=== PATIENT | female | born 1940 | race Hispanic/Latino ===

== ENCOUNTER 2016-10-18 18:11 | Emergency (ER) | payer MEDICARE, OTHER ==
[~2016-10-18] VITALS: Ht 152.4 cm; Wt 57.7 kg
[~2016-10-18 18:11] MED LIST: ADLT ASA LOW81 MG PO; ALLEGRA180 MG PO; ALPH-E400 UNIT OR; AMBIEN5 MG PO; ASPIRIN CHEWABL81 MG PO; ASTEPRO0.15 %; CIPROFLOXACN500 MG PO; CLARITIN10 MG PO; DELTASONE20 MG PO; DEXILANT60 MG PO; EQL STOOL SOFT100 MG PO; FISH OIL300 MG PO; FLAGYL ER750 MG PO; FLORASTOR250 M1 PO; GNP MELATONIN3 MG PO; K-TAB20 MEQ PO; LIPITOR10 MG PO; METAMUCIL0.52 G1 PO; METFORMIN500 MG PO; METOPROL TAR25 MG PO; METOPROL TAR50 MG PO; METRONIDAZOL500 MG PO; MIRALAX PO; MIRALAX3350 NF PO; PANTOPRAZOLE SO40 MG PO; PERCOCET 5/325M1 TAB PO; PREVACID30 M1 PO; ROBITUSSIN AC10 ML PO; STOOL SOFTEN1 TAB PO; TRAMADOL HCL50 MG PO; TYLENOL # 31 TA1 PO; TYLENOL 500MG TAB PO; ULTRAM50 M1 PO; VAGIFEM10 MCG VA; VITAMIN B-122500 MCG SL; VITAMIN B-625 MG PO; VITAMIN D-3 PO; VITAMIN D2000 UNI1 OR; WARFARIN3 MG PO; WARFARIN4 MG PO; XANAX0.25 MG PO; ZOFRAN ODT4 MG PO; ZPAK PO; [UNRECOGNIZED DRUG - OTHER] PO
[2016-10-18] MEDS ORDERED: TIZANIDINE HCL4 MG PO (18:37)
[2016-10-18] MEDS ORDERED: GABAPENTIN100 MG PO (18:38)
[2016-10-18 19:11] LABS: HEMATOCRIT 34.7 % (37.0-47.0); IMMATURE GRANULOCYTES 0.6 % (0.0-1.0); MEAN CELL VOLUME 98.6 fL CALC (80.0-100.0); MEAN CORPUSCULAR HGB 31.3 pG CALC (26.0-32.0); MEAN CORPUSCULAR HGB CONC 31.7 g/L CALC (32.0-36.0); NEUT# 5.98 thou/uL (2.00-7.15); RED BLOOD COUNT 3.52 mill/uL (4.20-5.60); RED CELL DISTRI WIDTH 13.7 % (11.5-15.5)
[2016-10-18 19:30] LABS: ACT PARTIAL THROMBO TIME 28.2 SECONDS (20.0-32.5); INTERNATIONAL NORMALIZED RATIO 2.2 RATIO (0.7-1.3); PROTHROMBIN TIME 25.4 SECONDS (9.0-12.5)
[2016-10-18 19:32] LABS: ALBUMIN 3.5 g/dL (3.2-5.0); ALKALINE PHOSPHATASE 50 u/l (38-126); AMYLASE 59 u/l (30-110); ANION GAP 15 (6-22 (CALC)); BILIRUBIN, TOTAL 0.4 mg/dL (0.0-1.4); BUN 43 mg/dL (8-23); BUN/CREATININE RATIO 41 (12-20 (CALC)); CALCIUM 9.3 mg/dL (8.4-10.2); CARBON DIOXIDE 23 mmol/l (22-30); CHLORIDE 108 mmol/l (95-108); CREATININE 1.1 mg/dL (0.5-1.0); GFR 48 ML/MIN (>=60 (CALC)); GFR FOR AFR.AMER. 58 ML/MIN (>=60 (CALC)); GLUCOSE 154 mg/dL (82-115); LIPASE 47 u/l (23-300); POTASSIUM 4.5 mmol/l (3.5-5.1); SGOT/AST 22 u/l (9-36); SGPT/ALT 29 u/l (11-66); SODIUM 141 mmol/l (137-146); TOTAL PROTEIN 6.3 g/dL (6.3-8.2)
[2016-10-18 19:43] LABS: MYOGLOBIN 24 ng/mL (0 - 62)
[2016-10-18 22:15] VITALS: BP 107/59
== END 2016-10-18 22:15 | disposition short-term general hospital (02) ==
LOC: ED 18:11
PROVIDERS: Emergency Medicine
DX: K92.2 Gastrointestinal hemorrhage, unspecified (principal); R10.33 Periumbilical pain; R94.31 Abnormal electrocardiogram [ECG] [EKG]; R19.7 Diarrhea, unspecified; I10 Essential (primary) hypertension; Z95.0 Presence of cardiac pacemaker; R11.0 Nausea
CPT/HCPCS: S0164

== ENCOUNTER 2017-02-11 08:32 | Emergency (ER) | payer MEDICARE, OTHER ==
[~2017-02-11] VITALS: Ht 152.4 cm; Wt 65.0 kg
[~2017-02-11 08:32] MED LIST changes: +GABAPENTIN100 MG PO; +TIZANIDINE HCL4 MG PO
[2017-02-11 09:22] LABS: HEMATOCRIT 35.8 % (37.0-47.0); HEMOGLOBIN 11.7 g/dl (12.0-16.0); IMMATURE GRANULOCYTES 0.3 % (0.0-1.0); MEAN CELL VOLUME 93.7 fL CALC (80.0-100.0); MEAN CORPUSCULAR HGB 30.6 pG CALC (26.0-32.0); MEAN CORPUSCULAR HGB CONC 32.7 g/L CALC (32.0-36.0); NEUT# 4.75 thou/uL (2.00-7.15); RED BLOOD COUNT 3.82 mill/uL (4.20-5.60); RED CELL DISTRI WIDTH 15.9 % (11.5-15.5)
[2017-02-11 09:31] LABS: INTERNATIONAL NORMALIZED RATIO 2.2 RATIO (0.7-1.3); PROTHROMBIN TIME 25.2 SECONDS (9.0-12.5)
[2017-02-11 09:32] LABS: ALBUMIN 4.1 g/dL (3.2-5.0); ALKALINE PHOSPHATASE 54 u/l (38-126); AMYLASE 61 u/l (30-110); ANION GAP 18 (6-22 (CALC)); BILIRUBIN, TOTAL 0.7 mg/dL (0.0-1.4); BUN 32 mg/dL (8-23); BUN/CREATININE RATIO 31 (12-20 (CALC)); CALCIUM 8.7 mg/dL (8.4-10.2); CARBON DIOXIDE 18 mmol/l (22-30); CHLORIDE 111 mmol/l (95-108); GFR 54 ML/MIN (>=60 (CALC)); GFR FOR AFR.AMER. > 60 ML/MIN (>=60 (CALC)); GLUCOSE 148 mg/dL (82-115); LIPASE 84 u/l (23-300); POTASSIUM 3.6 mmol/l (3.5-5.1); SGOT/AST 23 u/l (9-36); SGPT/ALT 32 u/l (11-66); SODIUM 144 mmol/l (137-146); TOTAL PROTEIN 7.1 g/dL (6.3-8.2)
[2017-02-11 09:44] LABS: MYOGLOBIN 47 ng/mL (0 - 62)
[2017-02-11 10:48] LABS: URINE BILIRUBIN - DIPSTICK NEGATIVE (NEGATIVE); URINE BLOOD DIPSTICK NEGATIVE (NEGATIVE); URINE CLARITY CLEAR; URINE COLOR YELLOW; URINE GLUCOSE - DIPSTICK NEGATIVE (NEGATIVE); URINE KETONE 40 mg/dL (NEGATIVE); URINE LEUK ESTERASE NEGATIVE (NEGATIVE); URINE NITRITE - DIPSTICK NEGATIVE (Negative); URINE PROTEIN - DIPSTICK TRACE mg/dL (NEG-TRACE); URINE UROBILINOGEN - DIPSTICK 0.2 E.U./dL (0.2)
[2017-02-11 13:55] VITALS: BP 104/66
== END 2017-02-11 13:59 ==
LOC: ED 08:32 → ED-I 12:36 → ED 13:59
PROVIDERS: Emergency Medicine
DX: K92.2 Gastrointestinal hemorrhage, unspecified (principal); R10.11 Right upper quadrant pain; I10 Essential (primary) hypertension; E11.9 Type 2 diabetes mellitus without complications; E78.5 Hyperlipidemia, unspecified; F03.90 Unspecified dementia, unspecified severity, without behavioral disturbance, psychotic disturbance, mood disturbance, and anxiety; I49.9 Cardiac arrhythmia, unspecified; Z79.01 Long term (current) use of anticoagulants; Z95.5 Presence of coronary angioplasty implant and graft
CPT/HCPCS: Q9967; S0164

== ENCOUNTER 2017-03-18 18:47 | Emergency (ER) | payer MEDICARE, OTHER ==
[~2017-03-18] VITALS: Ht 152.4 cm; Wt 57.0 kg
[~2017-03-18 18:47] MED LIST changes: +ATORVASTATIN CA10 MG PO; -LIPITOR10 MG PO
[2017-03-18] MEDS ORDERED: DIGOXIN0.125 MG PO (19:44)
[2017-03-18] MEDS ORDERED: PANTOPRAZOLE SO40 M1 PO (19:45)
[2017-03-18] MEDS ORDERED: CARAFATE1 GM PO (19:45)
[2017-03-18] MEDS ORDERED: ACETAZOLAMID125 MG PO (19:45)
[2017-03-18] MEDS ORDERED: LOPRESSOR 550 MG/TAB PO (19:47)
[2017-03-18] MEDS ORDERED: PREMARIN0.625 MG/G VA (19:47)
[2017-03-18 20:40] VITALS: BP 136/71
== END 2017-03-18 20:40 | disposition home or self-care (01) ==
LOC: ED 18:47
DX: S92.355A Nondisplaced fracture of fifth metatarsal bone, left foot, initial encounter for closed fracture (principal); S93.402A Sprain of unspecified ligament of left ankle, initial encounter; I10 Essential (primary) hypertension; E11.9 Type 2 diabetes mellitus without complications; E78.5 Hyperlipidemia, unspecified; F03.90 Unspecified dementia, unspecified severity, without behavioral disturbance, psychotic disturbance, mood disturbance, and anxiety; G47.30 Sleep apnea, unspecified; X58.XXXA Exposure to other specified factors, initial encounter; Y92.003 Bedroom of unspecified non-institutional (private) residence as the place of occurrence of the external cause; Y99.9 Unspecified external cause status; Z95.5 Presence of coronary angioplasty implant and graft

== ENCOUNTER 2017-05-23 10:10 | Day surgery (SDC) | payer MEDICARE, OTHER ==
[~2017-05-23] VITALS: Ht 154.9 cm; Wt 57.2 kg
[~2017-05-23 10:10] MED LIST changes: +ACETAZOLAMID125 MG PO; +B-122500 MCG PO; +CARAFATE1 GM PO; +DIGOXIN0.125 MG PO; +FISH OIL1000 M2 PO; +LOPRESSOR 550 MG/TAB PO; +PANTOPRAZOLE SO40 M1 PO; +PREMARIN0.625 MG/G; +PREMARIN0.625 MG/G VA; +PROBIOTI2 PO; +STOOL SOFTE1 PO; +VITAMIN B6100 MG PO; +VITAMIN D32000 UNIT PO
[2017-05-23] MEDS ORDERED: NEXIUM40 M1 PO (10:47)
[2017-05-23 11:23] LABS: ACT PARTIAL THROMBO TIME 25.3 SECONDS (20.0-32.5); PROTHROMBIN TIME 11.3 SECONDS (9.0-12.5)
[2017-05-23] MEDS ORDERED: KEFLEX500 M1 PO (14:37)
[2017-05-23] MEDS ORDERED: HYDROCODONE/ACE1 TAB PO (14:37)
[2017-05-23] MEDS ORDERED: EC ASPIRIN325 M1 PO (14:39)
[2017-05-23 15:16] VITALS: BP 136/80
== END 2017-05-23 15:10 | disposition home or self-care (01) ==
LOC: ORM 10:10
PROVIDERS: ATTEND Podiatrist Foot & Ankle Surgery
PROC: 0QSP04Z Reposition Left Metatarsal with Internal Fixation Device, Open Approach (ICD-10-PCS; principal; 2017-05-23)
DX: S92.352K Displaced fracture of fifth metatarsal bone, left foot, subsequent encounter for fracture with nonunion (principal); E11.9 Type 2 diabetes mellitus without complications; K21.9 Gastro-esophageal reflux disease without esophagitis; X58.XXXD Exposure to other specified factors, subsequent encounter

== ENCOUNTER 2017-12-22 11:22 | Day surgery (SDC) | payer MEDICARE, OTHER ==
[~2017-12-22] VITALS: Ht 152.4 cm; Wt 57.6 kg
[~2017-12-22 11:22] MED LIST changes: +EC ASPIRIN325 M1 PO; +HYDROCODONE/ACE1 TAB PO; +INFED50 MG/ML IJ; +KEFLEX500 M1 PO; +NEXIUM40 M1 PO
[2017-12-22 13:47] LABS: HEMATOCRIT 47.8 % (37.0-47.0); HEMOGLOBIN 15.5 g/dl (12.0-16.0); IMMATURE GRANULOCYTES 0.4 % (0.0-1.0); MEAN CELL VOLUME 100.6 fL CALC (80.0-100.0); MEAN CORPUSCULAR HGB 32.6 pG CALC (26.0-32.0); MEAN CORPUSCULAR HGB CONC 32.4 g/L CALC (32.0-36.0); NEUT# 3.49 thou/uL (2.00-7.15); RED BLOOD COUNT 4.75 mill/uL (4.20-5.60); RED CELL DISTRI WIDTH 14.6 % (11.5-15.5)
[2017-12-22 13:59] LABS: ACT PARTIAL THROMBO TIME 25.2 SECONDS (20.0-32.5)
[2017-12-22 15:03] VITALS: BP 135/88
[2017-12-22 16:17] LABS: PROTHROMBIN TIME 11.4 SECONDS (9.0-12.5)
== END 2017-12-22 15:15 | disposition home or self-care (01) ==
LOC: ENDO 11:22
PROVIDERS: ATTEND Internal Medicine Gastroenterology
PROC: 0DBE8ZX Excision of Large Intestine, Via Natural or Artificial Opening Endoscopic, Diagnostic (ICD-10-PCS; principal; 2017-12-22)
DX: R19.7 Diarrhea, unspecified (principal); K64.4 Residual hemorrhoidal skin tags; K57.31 Diverticulosis of large intestine without perforation or abscess with bleeding; D50.9 Iron deficiency anemia, unspecified; K22.70 Barrett's esophagus without dysplasia; K21.9 Gastro-esophageal reflux disease without esophagitis; R11.0 Nausea; K29.70 Gastritis, unspecified, without bleeding; K31.7 Polyp of stomach and duodenum; I48.91 Unspecified atrial fibrillation; E78.00 Pure hypercholesterolemia, unspecified; Z95.0 Presence of cardiac pacemaker; Z98.890 Other specified postprocedural states; Z79.01 Long term (current) use of anticoagulants; Z79.82 Long term (current) use of aspirin

== ENCOUNTER 2018-09-04 14:00 | Outpatient (RCR) | payer MEDICARE, OTHER ==
[~2018-09-04 14:00] MED LIST changes: +NEXIUM 24HR20 M1
== END 2018-09-04 15:00 | disposition home or self-care (01) ==
LOC: PT 14:00
PROVIDERS: ATTEND Neurological Surgery
DX: M54.5 Low back pain (principal); Z98.890 Other specified postprocedural states

== ENCOUNTER 2019-03-21 14:28 | Emergency (ER) | payer MEDICARE, OTHER ==
[~2019-03-21] VITALS: Ht 152.4 cm; Wt 54.1 kg
[~2019-03-21 14:28] MED LIST changes: +PROLIA60 MG/ML SC
[2019-03-21 14:58] LABS: HEMATOCRIT 44.2 % (37.0-47.0); HEMOGLOBIN 14.4 g/dl (12.0-16.0); IMMATURE GRANULOCYTES 0.2 % (0.0-5.0); MEAN CELL VOLUME 100.5 fL CALC (80.0-100.0); MEAN CORPUSCULAR HGB 32.7 pG CALC (26.0-32.0); MEAN CORPUSCULAR HGB CONC 32.6 g/L CALC (32.0-36.0); NEUT# 2.45 thou/uL (2.00-7.15); RED BLOOD COUNT 4.4 mill/uL (4.20-5.60)
[2019-03-21 15:21] LABS: ALBUMIN 4.3 g/dL (3.2-5.0); ALKALINE PHOSPHATASE 41 u/l (38-126); ANION GAP 14 (6-22 (CALC)); BILIRUBIN, TOTAL 0.6 mg/dL (0.0-1.4); BUN 16 mg/dL (8-23); BUN/CREATININE RATIO 17 (12-20 (CALC)); CARBON DIOXIDE 28 mmol/l (22-30); CHLORIDE 103 mmol/l (95-108); CREATININE 0.9 mg/dL (0.5-1.0); GFR 60 ML/MIN (>=60 (CALC)); GFR FOR AFR.AMER. > 60 ML/MIN (>=60 (CALC)); SGOT/AST 30 u/l (9-36); SODIUM 140 mmol/l (137-146); TOTAL PROTEIN 7.2 g/dL (6.3-8.2)
[2019-03-21 16:31] LABS: URINE BILIRUBIN - DIPSTICK NEGATIVE (NEGATIVE); URINE BLOOD DIPSTICK NEGATIVE (NEGATIVE); URINE COLOR YELLOW; URINE GLUCOSE - DIPSTICK NEGATIVE (NEGATIVE); URINE KETONE NEGATIVE (NEGATIVE); URINE LEUK ESTERASE NEGATIVE (NEGATIVE); URINE NITRITE - DIPSTICK NEGATIVE (Negative); URINE PROTEIN - DIPSTICK NEGATIVE (NEG-TRACE); URINE SPECIFIC GRAVITY 1.015; URINE UROBILINOGEN - DIPSTICK 0.2 E.U./dL (0.2)
[2019-03-21 16:53] VITALS: BP 167/76
== END 2019-03-21 17:10 | disposition home or self-care (01) ==
LOC: ED 14:28
PROVIDERS: Family Medicine
DX: R53.83 Other fatigue (principal)

== ENCOUNTER 2020-08-07 06:39 | Day surgery (SDC) | payer MEDICARE, OTHER ==
[~2020-08-07] VITALS: Ht 152.4 cm; Wt 57.2 kg
[~2020-08-07 06:39] MED LIST changes: +NAMENDA10 MG PO; +TIZANIDINE HYDRO2 M1 PO
[2020-08-07 07:55] LABS: ACT PARTIAL THROMBO TIME 22.7 SECONDS (20.0-32.5)
[2020-08-07 07:56] LABS: PROTHROMBIN TIME 9.9 SECONDS (9.0-12.5)
[2020-08-07 11:03] VITALS: BP 117/58
== END 2020-08-07 10:25 | disposition home or self-care (01) ==
LOC: ORM 06:39
PROVIDERS: ATTEND Urology
PROC: 0TBB8ZX Excision of Bladder, Via Natural or Artificial Opening Endoscopic, Diagnostic (ICD-10-PCS; principal; 2020-08-07)
DX: N32.81 Overactive bladder (principal); N30.20 Other chronic cystitis without hematuria; N39.46 Mixed incontinence; N81.10 Cystocele, unspecified; N81.6 Rectocele; I10 Essential (primary) hypertension; E11.9 Type 2 diabetes mellitus without complications; E78.5 Hyperlipidemia, unspecified; K21.9 Gastro-esophageal reflux disease without esophagitis; I48.91 Unspecified atrial fibrillation; R41.3 Other amnesia; Z87.891 Personal history of nicotine dependence; Z79.01 Long term (current) use of anticoagulants; Z20.822 Contact with and (suspected) exposure to COVID-19
CPT/HCPCS: J0131

== ENCOUNTER 2021-03-12 14:44 | Emergency (ER) | payer MEDICARE, OTHER ==
[~2021-03-12] VITALS: Ht 152.4 cm; Wt 60.0 kg
[2021-03-12] MEDS ORDERED: BUPROPN HCL150 MG PO (17:37)
[2021-03-12] MEDS ORDERED: ESOMEPRAZOLE MA40 MG PO (17:38)
[2021-03-12] MEDS ORDERED: DETROL LA2 MG PO (17:39)
[2021-03-12] MEDS ORDERED: CARAFATE1 GM PO (17:41)
[2021-03-12] MEDS ORDERED: TRAMADOL HYDROC50 M1 PO (20:33)
[2021-03-12 21:07] VITALS: BP 124/88
== END 2021-03-12 21:07 | disposition home or self-care (01) ==
LOC: ED 14:44
DX: S40.012A Contusion of left shoulder, initial encounter (principal); R07.81 Pleurodynia; M54.6 Pain in thoracic spine; I48.91 Unspecified atrial fibrillation; W10.1XXA Fall (on)(from) sidewalk curb, initial encounter; Y92.481 Parking lot as the place of occurrence of the external cause; Y99.9 Unspecified external cause status

== ENCOUNTER 2021-11-08 21:56 | Emergency (ER) | payer MEDICARE, OTHER ==
[~2021-11-08] VITALS: Ht 152.4 cm; Wt 47.8 kg
[~2021-11-08 21:56] MED LIST changes: +BUPROPN HCL150 MG PO; +DETROL LA2 MG PO; +ESOMEPRAZOLE MA40 MG PO; +TRAMADOL HYDROC50 M1 PO
[2021-11-08 22:47] LABS: HEMATOCRIT 47.4 % (37.0-47.0); HEMOGLOBIN 15.3 g/dl (12.0-16.0); IMMATURE GRANULOCYTES 0.4 % (0.0-5.0); MEAN CELL VOLUME 100.9 fL CALC (80.0-100.0); MEAN CORPUSCULAR HGB 32.6 pG CALC (26.0-32.0); MEAN CORPUSCULAR HGB CONC 32.3 g/dL CAL (32.0-36.0); NEUT# 7.72 thou/uL (2.00-7.15); RED BLOOD COUNT 4.7 mill/uL (4.20-5.60); RED CELL DISTRI WIDTH 12.4 % (11.5-15.5)
[2021-11-08 23:00] VITALS: BP 149/98
[2021-11-08 23:05] LABS: INTERNATIONAL NORMALIZED RATIO 1.3 RATIO (0.7-1.3); PROTHROMBIN TIME 13.8 SECONDS (9.0-12.5)
[2021-11-08 23:53] VITALS: BP 153/111
[2021-11-08 23:59] VITALS: BP 159/100
[2021-11-09] VITALS: BP 167/87
[2021-11-09 00:40] VITALS: BP 167/87
== END 2021-11-09 00:20 | disposition home or self-care (01) ==
LOC: ED 21:56
PROVIDERS: Family Medicine
DX: S01.01XA Laceration without foreign body of scalp, initial encounter (principal); S40.012A Contusion of left shoulder, initial encounter; I48.91 Unspecified atrial fibrillation; W18.30XA Fall on same level, unspecified, initial encounter; Y92.009 Unspecified place in unspecified non-institutional (private) residence as the place of occurrence of the external cause; Z79.01 Long term (current) use of anticoagulants

== ENCOUNTER 2021-12-11 09:36 | Observation (INO) | payer MEDICARE, OTHER ==
[~2021-12-11] VITALS: Ht 152.4 cm; Wt 47.0 kg
[2021-12-11] VITALS (11 sets, daily range): BP systolic 144–185; BP diastolic 83–100
[2021-12-11 10:30] LABS: HEMATOCRIT 41.8 % (37.0-47.0); HEMOGLOBIN 13.3 g/dl (12.0-16.0); IMMATURE GRANULOCYTES 0.1 % (0.0-5.0); MEAN CELL VOLUME 100.2 fL CALC (80.0-100.0); MEAN CORPUSCULAR HGB 31.9 pG CALC (26.0-32.0); MEAN CORPUSCULAR HGB CONC 31.8 g/dL CAL (32.0-36.0); NEUT# 4.3 thou/uL (2.00-7.15); RED BLOOD COUNT 4.17 mill/uL (4.20-5.60); RED CELL DISTRI WIDTH 12.7 % (11.5-15.5)
[2021-12-11 10:51] LABS: ALBUMIN 3.9 g/dL (3.2-5.0); ALKALINE PHOSPHATASE 44 u/l (38-126); ANION GAP 12 (6-22 (CALC)); BILIRUBIN, TOTAL 0.4 mg/dL (0.0-1.4); BUN 11 mg/dL (8-23); BUN/CREATININE RATIO 13 (12-20 (CALC)); CARBON DIOXIDE 29 mmol/l (22-30); CHLORIDE 102 mmol/l (95-108); CREATININE 0.9 mg/dL (0.5-1.0); ETHYL ALCOHOL 0 mg/dl (0-30); GFR FOR AFR.AMER. > 60 ML/MIN (>=60 (CALC)); GFR OTHER RACES 60 ML/MIN (>=60 (CALC)); LIPASE 30 u/l (23-300); POTASSIUM 3.7 mmol/l (3.5-5.1); SGOT/AST 19 u/l (9-36); SODIUM 139 mmol/l (137-146); TOTAL PROTEIN 6.9 g/dL (6.3-8.2)
[2021-12-11 10:52] LABS: ACT PARTIAL THROMBO TIME 27.4 SECONDS (20.0-32.5)
[2021-12-11 10:58] LABS: INTERNATIONAL NORMALIZED RATIO 2.1 RATIO (0.7-1.3); PROTHROMBIN TIME 20.6 SECONDS (9.0-12.5)
[2021-12-11 11:31] LABS: URINE BILIRUBIN - DIPSTICK NEGATIVE (NEGATIVE); URINE BLOOD DIPSTICK NEGATIVE (NEGATIVE); URINE COLOR YELLOW; URINE GLUCOSE - DIPSTICK NEGATIVE (NEGATIVE); URINE KETONE NEGATIVE (NEGATIVE); URINE LEUK ESTERASE NEGATIVE (NEGATIVE); URINE PH 6.5 (4.5-8.0); URINE PROTEIN - DIPSTICK NEGATIVE (NEG-TRACE); URINE UROBILINOGEN - DIPSTICK 0.2 E.U./dL (0.2)
[2021-12-11 11:41] LABS: URINE NITRITE - DIPSTICK NEGATIVE (Negative)
[2021-12-12 04:42] VITALS: BP 157/98
[2021-12-12 05:52] LABS: HEMOGLOBIN 13.4 g/dl (12.0-16.0); MEAN CELL VOLUME 99.1 fL CALC (80.0-100.0); MEAN CORPUSCULAR HGB 31.6 pG CALC (26.0-32.0); MEAN CORPUSCULAR HGB CONC 31.9 g/dL CAL (32.0-36.0); RED BLOOD COUNT 4.24 mill/uL (4.20-5.60); RED CELL DISTRI WIDTH 12.8 % (11.5-15.5)
[2021-12-12 06:12] LABS: ANION GAP 11 (6-22 (CALC)); BUN 9 mg/dL (8-23); BUN/CREATININE RATIO 12 (12-20 (CALC)); CARBON DIOXIDE 29 mmol/l (22-30); CHLORIDE 101 mmol/l (95-108); CREATININE 0.7 mg/dL (0.5-1.0); GFR FOR AFR.AMER. > 60 ML/MIN (>=60 (CALC)); GFR OTHER RACES > 60 ML/MIN (>=60 (CALC)); POTASSIUM 3.6 mmol/l (3.5-5.1); SODIUM 137 mmol/l (137-146)
[2021-12-12 06:16] LABS: PROTHROMBIN TIME 20.2 SECONDS (9.0-12.5)
[2021-12-12 06:51] VITALS: BP 171/93
[2021-12-12 08:00] VITALS: BP 171/93
[2021-12-12 11:44] VITALS: BP 163/98
== END 2021-12-12 13:07 | disposition home or self-care (01) ==
LOC: ED 09:36 → ED-I 11:50 → ED 12:14 → MS2 12:15
PROVIDERS: ADMIT Hospitalist; ATTEND Hospitalist
PROC: 0HQ1XZZ Repair Face Skin, External Approach (ICD-10-PCS; principal; 2021-12-11)
DX: S01.81XA Laceration without foreign body of other part of head, initial encounter (principal); I48.91 Unspecified atrial fibrillation; I10 Essential (primary) hypertension; D64.9 Anemia, unspecified; I25.10 Atherosclerotic heart disease of native coronary artery without angina pectoris; G91.2 (Idiopathic) normal pressure hydrocephalus; W01.0XXA Fall on same level from slipping, tripping and stumbling without subsequent striking against object, initial encounter; Y92.009 Unspecified place in unspecified non-institutional (private) residence as the place of occurrence of the external cause; Z79.01 Long term (current) use of anticoagulants; Z87.891 Personal history of nicotine dependence; Z91.81 History of falling; Z20.822 Contact with and (suspected) exposure to COVID-19; Z98.2 Presence of cerebrospinal fluid drainage device